=== PATIENT | male | born 1960 | race Caucasian/White ===

== ENCOUNTER 2025-04-24 10:59 | Outpatient (CLI) | payer BC, SELFPAY | END 2025-04-24 11:00 | disposition home or self-care (01) | PROVIDERS: PCP Family Medicine; Visit Provider Family Medicine | DX: D50.9 Iron deficiency anemia, unspecified (principal) | CPT/HCPCS: 80048; 82728; 85025 ==

== ENCOUNTER 2025-08-04 08:26 | Outpatient (CLI) | payer BC, SELFPAY ==
[2025-08-04 13:51] LABS: INR 2.38 (0.91-1.10); Prothrombin Time 27.1 Seconds
== END 2025-08-04 08:27 | disposition home or self-care (01) ==
LOC: NPINS 08:27
PROVIDERS: PCP Family Medicine; Visit Provider Internal Medicine Cardiovascular Disease
DX: I47.20 Ventricular tachycardia, unspecified (principal); Z95.811 Presence of heart assist device; Z79.01 Long term (current) use of anticoagulants
CPT/HCPCS: 85610

== ENCOUNTER 2025-08-04 08:59 | Outpatient (CLI) | payer BC, SELFPAY | END 2025-08-04 09:00 | disposition home or self-care (01) | PROVIDERS: PCP Family Medicine; Visit Provider Family Medicine | DX: I50.9 Heart failure, unspecified (principal); I10 Essential (primary) hypertension; D50.9 Iron deficiency anemia, unspecified; Z86.718 Personal history of other venous thrombosis and embolism; I47.20 Ventricular tachycardia, unspecified; Z95.811 Presence of heart assist device; Z79.01 Long term (current) use of anticoagulants | CPT/HCPCS: 80048; 82728; 83540; 85025 ==